=== PATIENT | male | born 1945 | race Caucasian/White ===

== ENCOUNTER → 2017-08-29 14:13 | Outpatient (CLI) | payer MEDICARE, SELFPAY ==
--- NOTE | 2017-08-29 | CT_ITS ---
CT chest wo con/high resolution chest CT HISTORY: ITS.REASON: LUNG CA..PNEUMONITIS DUE TO RADIATION ..COPD ORDERING PHYSICIAN: Celso Shaw MD PATIENT AGE: 72 years Technique: High-resolution axial images obtained. Sagittal and coronal reformatted images are also generated and reviewed. All CT scans at the facility use one or more dose reduction, viz: automated exposure control; ma/kV adjustment per patient size (including targeted exams where dose is matched to indication; i.e. head); or iterative reconstruction technique. CONTRAST: None COMPARISON: 11/29/2016, 10/11/2016 FINDINGS: In addition to the findings below, the high-resolution images do not demonstrate any interlobular septal thickening. Alveolar opacification in the right upper lobe is noted and is diffuse in nature and may be related to radiation pneumonitis or pneumonia. Parenchymal consolidation is once again noted in the left upper lobe anteriorly and medially and in the posterior aspect of the right upper lobe medially probably unchanged considering the difference in technique as today's study is performed without contrast.. There is been prior median sternotomy. Lobular soft tissue density is present along the right heart border and could be related to loculated effusion having developed in the interval measuring 3.5 x 1.1 cm. No obvious mediastinal or hilar mass or adenopathy There is diffuse alveolar consolidation of the right upper lobe. This has developed in the interval and may be related to diffuse pneumonia. Radiation pneumonitis is also a consideration if the patient has had interval radiation there be. There has been prior right lower lobectomy. There are small bilateral pleural effusions which are loculated and have slightly increased in size. A small amount fluid is present in the left major fissure inferiorly. Upper abdominal images show mild gallbladder wall thickening as well as persistent slight increased density along the tail the pancreas. IMPRESSION: 1. There is new alveolar consolidation involving the right upper lobe. This pattern is similar compared to an older exam of 10/11/2016. The consolidation is not quite as dense on today's exam as the older study. Pneumonia, edema, or postradiation pneumonitis is considered. 2. Slight increase in size of small bilateral pleural effusions. 3. Overall no change in the dense consolidation in the left upper lobe medially anteriorly and right upper lobe medially and posteriorly. 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 4. No evidence of interlobular septal thickening that would be seen with lymphangitic tumor spread or chronic interstitial pneumonitis
--- NOTE | 2017-08-29 | CT_ITS ---
CT chest wo con HISTORY: History of lung cancer with postradiation pneumonitis. ITS.REASON: RESTRICTIVE LUNG DISEASE ORDERING PHYSICIAN: Celso Shaw MD PATIENT AGE: 72 years Technique: Axial images obtained. Sagittal and coronal reformatted images are also generated and reviewed. All CT scans at the facility use one or more dose reduction, viz: automated exposure control; ma/kV adjustment per patient size (including targeted exams where dose is matched to indication; i.e. head); or iterative reconstruction technique. CONTRAST: None COMPARISON: 11/29/2016, 10/11/2016, 10/07/2015 FINDINGS: Parenchymal consolidation is once again noted in the left upper lobe anteriorly and medially and in the posterior aspect of the right upper lobe medially probably unchanged considering the difference in technique as today's study is performed without contrast.. There is been prior median sternotomy. Lobular soft tissue density is present along the right heart border and could be related to loculated effusion having developed in the interval measuring 3.5 x 1.1 cm. No obvious mediastinal or hilar mass or adenopathy There is diffuse alveolar consolidation of the right upper lobe. This has developed in the interval and may be related to diffuse pneumonia. Radiation pneumonitis is also a consideration if the patient has had interval radiation there be. There has been prior right lower lobectomy. There are small bilateral pleural effusions which are loculated and have slightly increased in size. A small amount fluid is present in the left major fissure inferiorly. Upper abdominal images show mild gallbladder wall thickening as well as persistent slight increased density along the tail the pancreas. IMPRESSION: 1. There is new alveolar consolidation involving the right upper lobe. This pattern is similar compared to an older exam of 10/11/2016. A consolidation is not quite as dense on today's exam as the older study. Pneumonia, edema, or postradiation pneumonitis is considered. 2. Slight increase in size of small bilateral pleural effusions. 3. Overall no change in the dense consolidation in the left upper lobe medially anteriorly and right upper lobe medially and posteriorly. 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
== END ==
PROVIDERS: Family Provider Internal Medicine; PCP Internal Medicine; Visit Provider Internal Medicine
DX: C34.91 Malignant neoplasm of unspecified part of right bronchus or lung (principal); J44.9 Chronic obstructive pulmonary disease, unspecified; J98.4 Other disorders of lung; J70.0 Acute pulmonary manifestations due to radiation
CPT/HCPCS: 71250